=== PATIENT | female | born 1970 | race Caucasian/White ===

== ENCOUNTER 2017-05-01 09:01 | Emergency (ER) | payer MEDICAID ==
[2017-05-01 09:24] VITALS: TEMP 97.8
[2017-05-01] MEDS ORDERED: Oxycodone/Acetaminophen 5/325 mg Tab PO STA ×2 (09:50→16:07)
--- NOTE | 2017-05-01 10:08 | ED PDOC ---
Arrival/HPI - General Chief Complaint: Trauma Time Seen by Provider: 05/01/17 09:48 Historian: Patient - History of Present Illness Narrative History of Present Illness (Text): 05/01/17 09:51 46-year-old female presents today with left-sided lateral rib pain status post slip and fall. Patient states she was walking and slipped on tile fell landing on wood injuring the left side of her ribs. She is complaining of pain with deep inspiration. She denies fevers or chills. No medications taken for pain. Patient denies hitting her head. Denies LOC. Denies headache dizziness or weakness. Patient denies abdominal pain. pt denies neck or back pain. denies nausea or vomiting. Patient complaining of pain to the left hand. Denies wrist pain. No other complaints. Time/Duration: Prior to Arrival Symptom Onset: Sudden Symptom Course: Unchanged Quality: Stabbing, Throbbing Severity Level: 10 Past Medical History - Provider Review Nursing Documentation Reviewed: Yes - Travel History Have you recently traveled outside [place] w/in the past 3 mons?: No - Infectious Disease Hx of Infectious Diseases: None - Cardiac Hx Cardiac Disorders: Yes Hx Hypertension: Yes - Pulmonary Hx Respiratory Disorders: No - Neurological Hx Neurological Disorder: No - HEENT Hx HEENT Disorder: No - Renal Hx Renal Disorder: No - Endocrine/Metabolic Hx Endocrine Disorders: Yes Hx Diabetes Mellitus Type 2: Yes - Hematological/Oncological Hx Cancer: No - Integumentary Hx Dermatological Disorder: No - Musculoskeletal/Rheumatological Hx Musculoskeletal Disorders: No - Gastrointestinal Hx Gastrointestinal Disorders: No - Genitourinary/Gynecological Hx Genitourinary Disorders: No - Psychiatric Hx Psychophysiologic Disorder: No Hx Substance Use: No - Surgical History Other/Comment: eye sx L eye - Anesthesia Hx Anesthesia: Yes Hx Anesthesia Reactions: No Family/Social History - Physician Review Nursing Documentation Reviewed: Yes Family/Social History: Unknown Family HX Smoking Status: Never Smoked Hx Alcohol Use: No Hx Substance Use: No Allergies/Home Meds Allergies/Adverse Reactions: Allergies No Known Allergies Allergy (Verified 05/01/17 09:19) Home Medications: Home Meds Medication Instructions Recorded Confirmed GlipiZIDE [Glucotrol] 0 mg PO DAILY 05/01/17 05/01/17 MetFORMIN [glucoPHAGE] 1,000 mg PO TID 05/01/17 05/01/17 SITagliptin [Januvia] 0 mg PO DAILY 05/01/17 05/01/17 amLODIPine [Norvasc] 0 mg PO DAILY 05/01/17 05/01/17 Review of Systems - Review of Systems Constitutional: absent: Fatigue, Fevers ENT: absent: Sinus Congestion Respiratory: absent: SOB, Cough Cardiovascular: Other (left sided rib pain ). absent: Chest Pain, Palpitations Gastrointestinal: absent: Abdominal Pain, Constipation, Diarrhea, Nausea, Vomiting Genitourinary Female: absent: Dysuria, Frequency Musculoskeletal: Arthralgias (left sided rib pain). absent: Back Pain, Neck Pain Skin: absent: Rash, Pruritis Neurological: absent: Headache, Dizziness Psychiatric: absent: Anxiety, Depression Physical Exam Vital Signs Reviewed: Yes Vital Signs Temp Pulse Resp BP Pulse Ox 05/01/17 16:09 90 05/01/17 16:00 98 H 18 132/65 100 05/01/17 14:00 102 H 18 136/69 100 05/01/17 12:08 105 H 16 137/88 100 05/01/17 12:07 99 H 18 148/89 98 05/01/17 09:23 97.8 F 110 H 16 152/92 H 98 Temperature: Afebrile Blood Pressure: Hypertensive Pulse: Tachycardic Respiratory Rate: Normal Appearance: Positive for: Well-Appearing, Non-Toxic, Uncomfortable Pain Distress: Mild Mental Status: Positive for: Alert and Oriented X 3 - Systems Exam Head: Present: Atraumatic. No: Tenderness Extroacular Muscles: Present: EOMI Conjunctiva: Present: Normal Mouth: Present: Moist Mucous Membranes Neck: Present: Normal Range of Motion, Trachea Midline. No: MIDLINE TENDERNESS , Paraspinal Tenderness Respiratory/Chest: Present: Clear to Auscultation, Good Air Exchange, Tender to Palpation (+ ttp over left lateral approx6-9 ribs. no edema, no erythema; no step offs. no ecchymosis; ). No: Respiratory Distress, Accessory Muscle Use, Retracting, Tachypneic Cardiovascular: Present: Tachycardic. No: Murmurs Abdomen: Present: Normal Bowel Sounds, Other (no ecchymosis). No: Tenderness, Distention, Peritoneal Signs, Rebound, Guarding Back: Present: Normal Inspection, Other (no ecchymosis; ). No: CVA Tenderness, Midline Tenderness, Paraspinal Tenderness Upper Extremity: Present: Normal ROM, NORMAL PULSES, Tenderness (left hand; + ttp over 5th metacarpal; minimal edema, no erythema; no ecchymosis; full rom of hand; no wrist tenderness; sensation and distal pulses intact; elbow and shoulder non tender; full rom of extremities bilaterally. ), Swelling, Neurovascularly Intact, Capillary Refill < 2s. No: Erythema, Deformity Lower Extremity: Present: Normal Inspection, Normal ROM Neurological: Present: GCS=15, Speech Normal, Motor Func Grossly Intact, Gait Normal Skin: Present: Warm, Dry, Normal Color. No: Rashes Psychiatric: Present: Alert, Oriented x 3 Medical Decision Making ED Course and Treatment: 05/01/17 10:35 Patient is nontoxic well appearing in no distress with stable vital signs. Lungs are clear to auscultation bilaterally. There is left-sided lower rib tenderness both anteriorly and laterally without crepitus or step-offs. PA chest: No fracture and no pneumothorax no effusion. left ribs: No fractur Toradol 60 mg IM given for pain. percocet given for pain Patient reassessment: Patient with slight improvement of pain. Lungs are clear bilaterally, Abdomen is soft minimal left upper tenderness with radiation to left ribs. pt remains tachycardic; most likely related to pain, will check ct chest/abd/pelvis pt seen and evaluated by dr. maldonado. cbc; wnl cmp; glucose elevated CT chest/abd/pelvis with IV contrast to r/o intraabdominal injury. FINDINGS: CT CHEST WITH CONTRAST: LUNGS: Clear. No nodule, mass or consolidation. MEDIASTINUM: Unremarkable. Normal caliber aorta and pulmonary arterial trunk. No aortic dissection. Normal size heart. LYMPH NODES: Unremarkable. PLEURA: Unremarkable. No pneumothorax. No pleural fluid. BONES: Unremarkable. OTHER FINDINGS: None. CT ABDOMEN AND PELVIS: LIVER: There is fatty infiltration of the liver GALLBLADDER AND BILE DUCTS: Unremarkable. PANCREAS: Unremarkable. No gross lesion or ductal dilatation. SPLEEN: Unremarkable. ADRENALS: Unremarkable. No mass. KIDNEYS AND URETERS: Unremarkable. No hydronephrosis. No solid mass. VASCULATURE: Unremarkable. No aortic aneurysm. BOWEL: Unremarkable. No obstruction. No gross mural thickening. APPENDIX: Normal appendix. PERITONEUM: Unremarkable. No free fluid. No free air. LYMPH NODES: Unremarkable. No enlarged lymph nodes. BLADDER: Unremarkable. REPRODUCTIVE: Unremarkable. BONES: No acute fracture. OTHER FINDINGS: None. IMPRESSION: No acute findings pt reassessment; pt still with continued pain; still slightly tachycardic 90- 104. additional percocet given; pt states that she always has fast heart rate. discussed all results with patient in depth; Advised patient to follow up with the primary care physician within the next 2 days apply ice to the ribs frequently. Motrin every 6 hours as needed for pain and percocet; every 6 hours as needed for moderate to severe pain. Advised returning if symptoms worsen persist or if new symptoms develop. advised using incentive spirometer frequently Patient verbalizes understanding of discharge instructions and need for immediate followup. all aspects of this case were discussed the attending of record. Impression: Contusion ribs, hand pain Motrin every 6 hours as needed for pain Percocet; one tablet every 6 hours as needed for moderate to severe pain: May cause drowsiness Apply ice frequently Followup with primary care physician within the next 2 days Followup with the orthopedist within the next 2 days Return if symptoms worsen persist or if new symptoms develop Use incentive spirometer frequently - Lab Interpretations Lab Results: 05/01/17 13:35 05/01/17 13:35 Lab Results 05/01/17 13:35: WBC 7.8, RBC 4.82, Hgb 10.5 L, Hct 34.0 L, MCV 70.5 L, MCH 21.8 L, MCHC 30.9 L, RDW 16.8 H, Plt Count 282, MPV 10.2, Gran % 63.3, Lymph % (Auto ) 30.1, Mora % (Auto) 4.7, Eos % (Auto) 1.4 L, Baso % (Auto) 0.5, Gran # 4.95, Lymph # 2.4, Mora # 0.4, Eos # 0.1, Baso # 0.04 05/01/17 13:35: Sodium 136, Potassium 4.2, Chloride 102, Carbon Dioxide 21, Anion Gap 18, BUN 14, Creatinine 0.6 L, Est GFR ( Amer) > 60, Est GFR ( Non-Af Amer) > 60, Random Glucose 230 H, Calcium 9.2, Total Bilirubin 0.2, AST 41 H, ALT 53, Alkaline Phosphatase 107, Total Protein 6.7, Albumin 3.9, Globulin 2.8, Albumin/Globulin Ratio 1.4 05/01/17 11:55: POC Glucose (mg/dL) 186 H 05/01/17 10:28: Urine Color Yellow, Urine Appearance Clear, Urine pH 6.0, Ur Specific [place] 1.020, Urine Protein 100 H, Urine Glucose (UA) >=1000, Urine Ketones 15 H, Urine Blood Trace-lysed H, Urine Nitrate Negative, Urine Bilirubin Negative, Urine Urobilinogen 0.2, Ur Leukocyte Esterase Negative, Urine RBC 0 - 2, Urine WBC 0 - 2, Ur Epithelial Cells 6 - 8, Urine Bacteria Trace - RAD Interpretation Radiology Orders: 05/01/17 09:48 HAND LEFT 3 VIEWS ROUTINE [RAD] Stat RIBS LEFT & PA CHEST [RAD] Stat 05/01/17 13:10 CHEST,ABD,PEL W/IV CONT ONLY [CT] Stat - Medication Orders Current Medication Orders: Discontinued Medications Sodium Chloride (Sodium Chloride 0.9%) 1,000 mls @ 999 mls/hr IV .Q1H1M STA Stop: 05/01/17 15:16 Last Admin: 05/01/17 14:54 Dose: 999 mls/hr eMAR Start Stop Document 05/01/17 14:54 OCS (Rec: 05/01/17 14:54 OCS [id number]) Intravenous Solution Start Date 05/01/17 Start Time 14:54 End Date 05/01/17 End time 15:55 Total Infusion Time 61 Ketorolac Tromethamine (Toradol) 60 mg IM STAT STA Stop: 05/01/17 09:51 Last Admin: 05/01/17 10:25 Dose: 60 mg MAR Pain Assessment Document 05/01/17 10:25 OCS (Rec: 05/01/17 10:25 O[facility] [id number] Pain Reassessment Is this a pain reassessment? No Sleep Is patient sleeping during reassessment? No Presence of Pain Presence of Pain Yes Pain Scale Used Pain Scale Used Numeric Location Left, Right or Bilateral Left Upper or Lower Upper Pain Location Body Site Arm Description Description Constant Intensity of Pain at present 10 Aggravating Factors ADL's IM Administration Charges Document 05/01/17 10:25 OCS (Rec: 05/01/17 10:25 [facility] [place] [id number] Charges for Administration # of IM Administrations 1 Oxycodone/Acetaminophen (Percocet 5/325 Mg Tab) 1 tab PO STAT STA Stop: 05/01/17 09:51 Last Admin: 05/01/17 10:22 Dose: 1 tab MAR Pain Assessment Document 05/01/17 10:22 OCS (Rec: 05/01/17 10:24 O[facility] [email or web address] Pain Reassessment Is this a pain reassessment? No Sleep Is patient sleeping during reassessment? No Presence of Pain Presence of Pain Yes Pain Scale Used Pain Scale Used Numeric Location Left, Right or Bilateral Right Upper or Lower Upper Pain Location Body Site Arm Description Description Constant Intensity of Pain at present 10 Oxycodone/Acetaminophen (Percocet 5/325 Mg Tab) 1 tab PO STAT STA Stop: 05/01/17 16:08 Last Admin: 05/01/17 16:11 Dose: 1 tab MAR Pain Assessment Document 05/01/17 16:11 SC (Rec: 05/01/17 16:12 SC [id number]) Pain Reassessment Is this a pain reassessment? Yes Sleep Is patient sleeping during reassessment? No Presence of Pain Presence of Pain Yes Pain Scale Used Pain Scale Used Numeric Description Intensity of Pain at present 6 Disposition/Present on Arrival - Present on Arrival Any Indicators Present on Arrival: No History of DVT/PE: No History of Uncontrolled Diabetes: No Urinary Catheter: No History of Decub. Ulcer: No History Surgical Site Infection Following: None - Disposition Have Diagnosis and Disposition been Completed?: Yes Diagnosis: Rib contusion, Hand pain Disposition: HOME/ ROUTINE Disposition Time: 15:49 Patient Plan: Discharge Condition: GOOD Discharge Instructions (ExitCare): Arthralgia (ED), Rib Contusion (ED) Additional Instructions: Motrin every 6 hours as needed for pain Percocet; one tablet every 6 hours as needed for moderate to severe pain: May cause drowsiness Apply ice frequently Followup with primary care physician within the next 2 days Followup with the orthopedist within the next 2 days Return if symptoms worsen persist or if new symptoms develop Use incentive spirometer frequently Prescriptions: Ibuprofen [Motrin] 600 mg PO Q6H PRN #20 tab PRN Reason: pain/fever reduction oxyCODONE/Acetaminophen [Percocet 5/325 mg Tab] 1 tab PO Q6H PRN #6 tab PRN Reason: moderate to severe pain Referrals: Chaka Fuller MD [Primary Care Provider] - Follow up with primary Dario Parker DO [Staff Provider] - Follow up with primary Forms: [employer] ([place]uan), WORK NOTE
[2017-05-01 10:34] LABS: URINE APPEARANCE CLEAR (CLEAR); URINE BILIRUBIN NEGATIVE (NEGATIVE); URINE BLOOD TRACE-LYSED (NEGATIVE); URINE COLOR YELLOW (YELLOW); URINE GLUCOSE (UA) >=1000 mg/dL (NEGATIVE); URINE KETONE 15 mg/dL (NEGATIVE); URINE LEUKOCYTE ESTERASE NEGATIVE Leu/uL (NEGATIVE); URINE PROTEIN 100 mg/dL (<30 mg/dL); URINE UROBILINOGEN 0.2 E.U./dL (<1 E.U./dL)
[2017-05-01 10:42] LABS: URINE BACTERIA TRACE (NEG); URINE RBC 0 - 2 /hpf (0-2); URINE WBC 0 - 2 /hpf (0-6)
--- NOTE | 2017-05-01 11:57 | RAD ---
PROCEDURE: Left Hand Radiographs. HISTORY: hand pain 5th metacarpal; s/p fall COMPARISON: None. FINDINGS: BONES: Normal. No fracture. JOINTS: Normal. No osteoarthritic changes. SOFT TISSUES: Normal. OTHER FINDINGS: None. IMPRESSION: Normal left hand radiographs.
--- NOTE | 2017-05-01 11:58 | RAD ---
PROCEDURE: Radiographs of the Chest and Left Ribs. HISTORY: left sided rib pain s/p fall COMPARISON: None available. TECHNIQUE: Frontal radiograph of the chest and multiple oblique radiographs of the left ribs were obtained. FINDINGS: LEFT RIBS: No fracture or focal lesion visualized. LUNGS: Clear. PLEURA: No pneumothorax or pleural fluid. CARDIOVASCULAR: Normal sized heart. No pulmonary vascular congestion. OTHER FINDINGS: None. IMPRESSION: Unremarkable radiographs of the chest and left ribs. No left rib fracture.
[2017-05-01 12:09] VITALS: O2SAT 100
[2017-05-01 13:44] LABS: BASO # 0.04 K/mm3 (0.0-2.0); BASO % 0.5 % (0.0-3.0); EOS # 0.1 (0.0-0.7); EOS % 1.4 % (1.5-5.0); GRAN # 4.95 (1.4-6.5); GRAN % 63.3 % (50.0-68.0); LYMPH # 2.4 (1.2-3.4); LYMPH % 30.1 % (22.0-35.0); MEAN CELL VOLUME 70.5 fl (80.0-105.0); MEAN CORPUSCULAR HEMOGLOBIN 21.8 pg (25.0-35.0); MEAN CORPUSCULAR HGB CONC 30.9 g/dl (31.0-37.0); MEAN PLATELET VOLUME 10.2 fl (7.0-11.0); MONO # 0.4 (0.1-0.6); MONO % 4.7 % (1.0-6.0); RED CELL DISTRIBUTION WIDTH 16.8 % (11.5-14.5); WHITE BLOOD COUNT 7.8 10^3/ul (4.5-11.0)
[2017-05-01 13:56] LABS: ALB/GLOB RATIO 1.4 (1.1-1.8); ALKALINE PHOSPHATASE 107 U/L (38-126); ALT/SGPT 53 U/L (7-56); AST/SGOT 41 U/L (14-36); BILIRUBIN,TOTAL 0.2 mg/dL (0.2-1.3); BLOOD UREA NITROGEN 14 mg/dL (7-21); CALCIUM 9.2 mg/dL (8.4-10.5); CARBON DIOXIDE 21 mmol/L (21-33); CHLORIDE 102 mmol/L (98-107); GFR AFRICAN-AMERICAN > 60; GLUCOSE,RANDOM 230 mg/dL (70-110); POTASSIUM 4.2 mmol/L (3.6-5.0); SODIUM 136 mmol/L (132-148); TOTAL PROTEIN 6.7 g/dL (5.8-8.3)
[2017-05-01 14:16] VITALS: RESP 18
[2017-05-01] MEDS ORDERED: Sodium Chloride 0.9% 1,000 ML IV STA (14:16)
--- NOTE | 2017-05-01 15:40 | CT ---
PROCEDURE: CT Chest, Abdomen and Pelvis with intravenous contrast HISTORY: left sided rib/abd pain COMPARISON: None. TECHNIQUE: IV dose administered: 100 cc of Omni 350 Radiation dose: Total exam DLP = 505 mGy-cm. This CT exam was performed using one or more of the following dose reduction techniques: Automated exposure control, adjustment of the mA and/or kV according to patient size, and/or use of iterative reconstruction technique. FINDINGS: CT CHEST WITH CONTRAST: LUNGS: Clear. No nodule, mass or consolidation. MEDIASTINUM: Unremarkable. Normal caliber aorta and pulmonary arterial trunk. No aortic dissection. Normal size heart. LYMPH NODES: Unremarkable. PLEURA: Unremarkable. No pneumothorax. No pleural fluid. BONES: Unremarkable. OTHER FINDINGS: None. CT ABDOMEN AND PELVIS: LIVER: There is fatty infiltration of the liver GALLBLADDER AND BILE DUCTS: Unremarkable. PANCREAS: Unremarkable. No gross lesion or ductal dilatation. SPLEEN: Unremarkable. ADRENALS: Unremarkable. No mass. KIDNEYS AND URETERS: Unremarkable. No hydronephrosis. No solid mass. VASCULATURE: Unremarkable. No aortic aneurysm. BOWEL: Unremarkable. No obstruction. No gross mural thickening. APPENDIX: Normal appendix. PERITONEUM: Unremarkable. No free fluid. No free air. LYMPH NODES: Unremarkable. No enlarged lymph nodes. BLADDER: Unremarkable. REPRODUCTIVE: Unremarkable. BONES: No acute fracture. OTHER FINDINGS: None. IMPRESSION: No acute findings
[2017-05-01 16:04] VITALS: BP 132/65
[2017-05-01 16:09] VITALS: PULSE 90
== END 2017-05-01 16:24 | disposition home or self-care (01) ==
LOC: ED 09:01
DX: M79.642 Pain in left hand (principal); S20.212A Contusion of left front wall of thorax, initial encounter; W01.0XXA Fall on same level from slipping, tripping and stumbling without subsequent striking against object, initial encounter; Y92.89 Other specified places as the place of occurrence of the external cause
CPT/HCPCS: 71101; 71260; 73130; 74177; 80053; 81001; 82948; 85025; 96360; 96372; 99285; J1885; J7040; Q9967